=== PATIENT | female | born 1960 | race Caucasian/White ===

== ENCOUNTER 2016-09-09 06:18 | Emergency (ER) | payer OTHER ==
[~2016-09-09] VITALS: Ht 162.6 cm; Wt 99.5 kg
[~2016-09-09 06:18] MED LIST: ALPR0.5T PO; AMLO-218 PO; BENZ1TAB7 PO; CYCL5TAB PO; GEMF600T PO; GLYB5TAB3 PO; HALO10TA PO; IBUP-1542 PO; METF500T4 PO; OXYC-284 PO; PARO20TA58 PO
[2016-09-09 06:39] VITALS: Ht 162.6 cm; Wt 99.5 kg
[2016-09-09] MEDS ORDERED: FAMOTIDINE 20 MG TAB PO ONE (07:00)
[2016-09-09] MEDS ORDERED: LIDOCAINE/MYLANTA 4 ML (PO SYG) PO ONE (07:00)
[2016-09-09] MEDS ORDERED: LIDOCAINE/MYLANTA 40 ML BTL PO STA (07:08)
[2016-09-09 07:10] LABS: ADD SCAN DIFF NO
--- NOTE | 2016-09-09 07:11 | ERD ---
ER Documentation Chief Complaint Date/Time DATE: 09/09/16 TIME: 07:06 Chief Complaint BROUGHT IN VIA EMS DUE TO ABDOMINAL PAIN HPI 56-year-old female with a history of diabetes and hypertension brought in by ambulance for epigastric abdominal pain that woke her up from sleep. She states it was a sharp, stabbing pain. Nonradiating, no associated dizziness, shortness of breath, diaphoresis, nausea, or vomiting. She did have one loose bowel movement which made her feel a lot better. Her pain lasted only a few minutes. Currently she denies any pain. She has no chest pain or shortness of breath at this time. No fevers or chills. She is taking an "antibiotic" for recently diagnosed fungal infection in her mouth. No recent travel or other antibiotics. Of note, the patient admits to using methamphetamines yesterday ROS All systems reviewed and are negative except as per history of present illness. Medications Home Meds Active Scripts Cyclobenzaprine Hcl* (Cyclobenzaprine Hcl*) 5 Mg Tablet, 5 MG PO Q8H Y for MUSCLE SPASMS, #15 TAB Prov:SHANI JACKMAN NP 07/26/15 Ibuprofen* (Motrin*) 600 Mg Tab, 600 MG PO Q6H Y for PAIN AND OR ELEVATED TEMP, #30 TAB Prov:SHANI JACKMAN NP 07/26/15 Oxycodone Hcl-Acetaminophen* (Percocet*) 10-325 Mg Tablet, 1 TAB PO Q4H Y for SEVERE PAIN LEVEL 7-10, #10 TAB Prov:SHANI JACKMAN NP 07/26/15 Ibuprofen* (Motrin*) 600 Mg Tab, 600 MG PO Q6H Y for PAIN AND OR ELEVATED TEMP, #30 Prov:KINGSLEY SANTIZO MD 11/29/14 Reported Medications Glyburide* (Glyburide*) 5 Mg Tablet, 5 MG PO BID, TAB 11/29/14 Paroxetine Hcl* (Paxil*) 20 Mg Tablet, 20 MG PO DAILY, TAB 11/29/14 Benztropine Mesylate* (Cogentin*) 1 Mg Tab, 1 MG PO BID, TAB 11/29/14 Alprazolam* (Xanax*) 0.5 Mg Tab, 0.5-1 MG PO DAILY Y for ANXIETY, TAB 11/29/14 Metformin* (Glucophage*) 500 Mg Tab, 500 MG PO BID, TAB 11/29/14 Haloperidol* (Haloperidol*) 10 Mg Tablet, 10 MG PO DAILY, TAB 11/29/14 Gemfibrozil* (Lopid*) 600 Mg Tablet, 600 MG PO BID, TAB 11/29/14 Amlodipine Besylate* (Norvasc*) 10 Mg Tablet, 10 MG PO DAILY, TAB 11/29/14 Allergies Allergies: Coded Allergies: hydrocodone (Verified Allergy, Unknown, PT DOES NOT LIKE VICODIN, BUT NO ALLERGY TO IT, 11/29/14) PMhx/Soc History of Surgery: Yes (left ankle surgery) Anesthesia Reaction: No Hx Respiratory Disorders: Yes (COPD) Hx Cardiac Disorders: Yes (Hypertension) Hx Psychiatric Problems: Yes (Schizoprenia(stable)) Hx Miscellaneous Medical Probl: Yes (chronic back pain, diabetes type 2, 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 Oropharynx normal Neck: Full range of motion. No JVD. No meningismus. Resp: Clear to auscultation bilaterally Cardio: Regular rate and rhythm, no murmurs. 2+ distal pulses in all 4 extremities Abd: Soft, minimal epigastric tenderness to palpation without rebound or guarding, non distended. Normal bowel sounds Skin: No petechiae or rashes Rectal: Normal tone, No mass, Positive control Stool: Brown Guaiac: Sent to lab Back: No midline or flank tenderness Ext: No cyanosis, or edema Neur: Awake and alert and oriented 3, no facial asymmetry, strength and sensations intact in all 4 extremities Psych: Normal Mood and Affect Result Diagram: 09/09/1650 09/09/1650 Results 24 hrs Laboratory Tests Test 09/09/16 06:50 White Blood Count 9.310^3/ul Red Blood Count 4.2610^6/ul Hemoglobin 12.3g/dl Hematocrit 36.8% Mean Corpuscular Volume 86.4fl Mean Corpuscular Hemoglobin 28.9pg Mean Corpuscular Hemoglobin Concent 33.4g/dl Red Cell Distribution Width 14.2% Platelet Count 63757^3/UL Mean Platelet Volume 10.2fl Neutrophils % 50.5% Lymphocytes % 32.8% Monocytes % 12.4% Eosinophils % 3.2% Basophils % 0.8% Nucleated Red Blood Cells % 0.0/100WBC Neutrophils # 4.710^3/ul Lymphocytes # 3.110^3/ul Monocytes # 1.210^3/ul Eosinophils # 0.310^3/ul Basophils # 0.110^3/ul Nucleated Red Blood Cells # 0.010^3/ul Prothrombin Time 12.3Sec Prothrombin Time Ratio 1.0 INR International Normalized Ratio 0.91 Activated Partial Thromboplast Time 30.2Sec Stool Occult Blood NEGATIVE Sodium Level 137mmol/L Potassium Level 3.9mmol/L Chloride Level 104mmol/L Carbon Dioxide Level 27mmol/L Anion Gap 10 Blood Urea Nitrogen 15mg/dl Creatinine 0.57mg/dl Glucose Level 104mg/dl Calcium Level 9.5mg/dl Total Bilirubin 0.1mg/dl Direct Bilirubin 0.00mg/dl Indirect Bilirubin 0.1mg/dl Aspartate Amino Transf (AST/SGOT) 29IU/L Alanine Aminotransferase (ALT/SGPT) 42IU/L Alkaline Phosphatase 101IU/L Troponin I < 0.012ng/ml Total Protein 7.2g/dl Albumin 4.4g/dl Globulin 2.80g/dl Albumin/Globulin Ratio 1.57 Lipase 93U/L Current Medications Medications (Trade) Dose Ordered Sig/Anthony Route PRN Reason Start Time Stop Time Status Last Admin Dose Admin Famotidine (Pepcid) 20 mg ONCE ONCE PO 09/09/16 07:00 09/09/16 07:01 DC 09/09/16 07:16 Miscellaneous Medication (Gi Cocktail (2) (Ped)) 40 ml ONCE ONCE PO 09/09/16 07:00 09/09/16 07:09 DC Miscellaneous Medication (Gi Cocktail (2)) 40 ml ONCE STAT PO 09/09/16 07:08 09/09/16 07:10 DC 09/09/16 07:16 Procedures/MDM EKG: Rate/Rhythm: Normal Sinus Rhythm QRS, ST, T-waves: No changes consistent w/ acute ischemia Impression: No evidence of ischemia or arrhythmia Labs CBC: no anemia or evidence of infection CMP: No evidence of electrolyte abnormality, renal failure, hypoglycemia, liver failure, or biliary obstruction Lipase: no evidence of pancreatitis Troponin within normal limits Chest x-ray: No acute abnormalities MDM Patient is presenting with sudden onset epigastric pain that now resolved. She is hemodynamically stable. Differential includes but is not limited to biliary colic, biliary obstruction, acute cholecystitis, pancreatitis, hepatitis, lower lobe pneumonia, gastritis, colitis, cardiac pathology, aortic dissection, ureterolithiasis, pyelonephritis. I have a low suspicion for acute infectious process or for cardiac or aortic etiology. Labs were ordered to evaluate for above and were normal. Chest Xray ordered to evaluate for pneumonia and was read as normal by radiology. I do not think imaging of the abdomen is warranted at this time. Patient's pain is resolved. Pepcid and GI cocktail were given. Fecal occult blood was negative. Patient requesting discharge upon reevaluation. She states she feels much better. She was counseled on the dangers of using drugs, especially at her age. She was encouraged to return for any worsening symptoms. Follow-up with primary care doctor was recommended in 1-2 days. Smoking Cessation Therapy: Pt. was lectured for greater than 3 minutes on the health risks of continued smoking and the benefits of cessation. Departure Diagnosis: Primary Impression: Abdominal pain Abdominal location: epigastric Qualified Code: R10.13 - Epigastric pain Additional Impressions: Tobacco abuse counseling Tobacco dependence Condition: Stable HERVE BRIONES MD Sep 09, 2016 07:11
[2016-09-09 07:29] LABS: BASOPHIL # 0.1 10^3/ul (0.0-0.1); BASOPHILS % 0.8 % (0.0-2.0); EOSINOPHILS # 0.3 10^3/ul (0.0-0.5); EOSINOPHILS % 3.2 % (0.0-7.0); HEMATOCRIT 36.8 % (37.0-47.0); HEMOGLOBIN 12.3 g/dl (12.0-16.0); LYMPHOCYTES # 3.1 10^3/ul (0.8-2.9); LYMPHOCYTES % 32.8 % (15.0-51.0); MEAN CORPUSCULAR HEMOGLOBIN 28.9 pg (29.0-33.0); MEAN CORPUSCULAR HGB CONC 33.4 g/dl (32.0-37.0); MEAN CORPUSCULAR VOLUME 86.4 fl (82.0-101.0); MEAN PLATELET VOLUME 10.2 fl (7.4-10.4); MONOCYTE # 1.2 10^3/ul (0.3-0.9); MONOCYTES % 12.4 % (0.0-11.0); NEUTROPHIL # 4.7 10^3/ul (1.6-7.5); NEUTROPHILS % 50.5 % (39.0-77.0); PLATELET COUNT 368 10^3/UL (140-415); RED BLOOD COUNT 4.26 10^6/ul (4.20-5.40); RED CELL DISTRIBUTION WIDTH 14.2 % (11.5-14.5); WHITE BLOOD COUNT 9.3 10^3/ul (4.8-10.8)
[2016-09-09 07:31] LABS: INR 0.91; PROTIME 12.3 Sec (12.2-14.2)
[2016-09-09 07:32] LABS: PARTIAL THROMBOPLASTIN TIME 30.2 Sec (25.0-35.0)
[2016-09-09 07:35] LABS: ALANINE AMINOTRANSFERASE 42 IU/L (13-69); ALBUMIN 4.4 g/dl (3.3-4.9); ALBUMIN/GLOBULIN RATIO 1.57; ALKALINE PHOSPHATASE 101 IU/L (42-121); ANION GAP 10 (8-16); ASPARTATE AMINO TRANSFERASE 29 IU/L (15-46); BILIRUBIN,INDIRECT 0.1 mg/dl (0-1.1); BILIRUBIN,TOTAL 0.1 mg/dl (0.2-1.3); BLOOD UREA NITROGEN 15 mg/dl (7-20); CALCIUM 9.5 mg/dl (8.4-10.2); CARBON DIOXIDE 27 mmol/L (21-31); CHLORIDE 104 mmol/L (97-110); CREATININE 0.57 mg/dl (0.44-1.00); GLUCOSE 104 mg/dl (70-220); POTASSIUM 3.9 mmol/L (3.5-5.1); SODIUM 137 mmol/L (135-144); TOTAL PROTEIN 7.2 g/dl (6.1-8.1)
[2016-09-09 07:48] LABS: TROPONIN-I < 0.012 ng/ml (0.00-0.12)
--- NOTE | 2016-09-09 07:56 | RADRPT ---
PROCEDURE: XR Chest. CLINICAL INDICATION: Shortness of breath TECHNIQUE: An AP view of the chest was obtained. COMPARISON: No prior exam is available for comparison. FINDINGS: There is prominence of the interstitial markings. No pleural effusion or pneumothorax is seen. Th e cardiomediastinal silhouette is mildly enlarged . Calcifications are seen within the aortic arch. The osseous structures demonstrate senescent changes. IMPRESSION: 1. Mild prominence of the interstitial markings, may reflect mild underlying interstitial edema or chronic lung changes. 2. Mild cardiomegaly and aortic atherosclerosis. RPTAT: HH .Lisandra Mccloud MD, MD Date Time Electronically viewed and signed by .Lisandra Mccloud MD, MD on 09/09/2016 07:56 .G/
== END 2016-09-09 08:30 | disposition home or self-care (01) ==
LOC: E/R 06:18
DX: R10.13 Epigastric pain (principal); F17.210 Nicotine dependence, cigarettes, uncomplicated; E11.9 Type 2 diabetes mellitus without complications; I10 Essential (primary) hypertension; J44.9 Chronic obstructive pulmonary disease, unspecified; Z71.6 Tobacco abuse counseling; Z79.84 Long term (current) use of oral hypoglycemic drugs
CPT/HCPCS: 36415; 71010; 80053; 82270; 83690; 84484; 85025; 85610; 85730; 93005

== ENCOUNTER 2016-11-10 16:12 | Emergency (ER) | payer OTHER ==
[~2016-11-10] VITALS: Ht 162.6 cm; Wt 100.0 kg
[2016-11-10 16:26] VITALS: Ht 162.6 cm; Wt 100.0 kg
[2016-11-10] MEDS ORDERED: ASPIRIN 81 MG TAB PO STA (16:27)
[2016-11-10 16:43] LABS: BASOPHILS % 0.4 % (0.0-2.0); EOSINOPHILS # 0.4 10^3/ul (0.0-0.5); EOSINOPHILS % 3.4 % (0.0-7.0); HEMATOCRIT 37.8 % (37.0-47.0); HEMOGLOBIN 12.7 g/dl (12.0-16.0); LYMPHOCYTES # 2.4 10^3/ul (0.8-2.9); LYMPHOCYTES % 22.4 % (15.0-51.0); MEAN CORPUSCULAR HEMOGLOBIN 28.9 pg (29.0-33.0); MEAN CORPUSCULAR HGB CONC 33.6 g/dl (32.0-37.0); MEAN CORPUSCULAR VOLUME 86.1 fl (82.0-101.0); MEAN PLATELET VOLUME 9.4 fl (7.4-10.4); MONOCYTE # 0.9 10^3/ul (0.3-0.9); NEUTROPHILS % 65.4 % (39.0-77.0); PLATELET COUNT 372 10^3/UL (140-415); RED BLOOD COUNT 4.39 10^6/ul (4.20-5.40); RED CELL DISTRIBUTION WIDTH 13.4 % (11.5-14.5); WHITE BLOOD COUNT 10.8 10^3/ul (4.8-10.8)
--- NOTE | 2016-11-10 16:57 | RADRPT ---
PROCEDURE: XR Chest. CLINICAL INDICATION: Chest pain. TECHNIQUE: Anterior chest x-ray. COMPARISON: 09/09/2016 FINDINGS: The lungs are clear. No pleural effusion identified. There is no evidence of pneumothorax. The cardiomediastinal silhouette is unremarkable. The soft tissues are normal. Osseous structures are unremarkable. IMPRESSION: 1. No acute disease is seen in the chest. RPTAT: QQ .Jason Torres MD, MD Date Time Electronically viewed and signed by .Jason Torres MD, on 11/10/2016 16:56 .M/
[2016-11-10 17:02] LABS: ANION GAP 10 (8-16); BLOOD UREA NITROGEN 12 mg/dl (7-20); CALCIUM 8.9 mg/dl (8.4-10.2); CARBON DIOXIDE 28 mmol/L (21-31); CHLORIDE 107 mmol/L (97-110); CREATININE 0.56 mg/dl (0.44-1.00); GLUCOSE 125 mg/dl (70-220); POTASSIUM 3.3 mmol/L (3.5-5.1); SODIUM 142 mmol/L (135-144)
--- NOTE | 2016-11-10 17:04 | ERD ---
ER Documentation Chief Complaint Date/Time DATE: 11/10/16 TIME: 17:01 Chief Complaint chest pain x 30 min ago resolved after asa 162mg, and nitro spray x 2 HPI This 56-year-old female presents with now 45 minutes of chest pain there was epigastric and substernal, nonradiating, sharp pain that was not associated with shortness of breath or nausea. She has had this pain on and off a couple of times. She came by ambulance and received 2 sublingual nitroglycerin as well as 160 mg aspirin. Her chest pain resolved with that. Currently she has no symptoms. ROS All systems reviewed and are negative except as per history of present illness. Medications Home Meds Active Scripts Ranitidine Hcl* (Zantac*) 150 Mg Tablet, 150 MG PO BID, #60 TAB Prov:RIDDHI RING DO 11/10/16 Cyclobenzaprine Hcl* (Cyclobenzaprine Hcl*) 5 Mg Tablet, 5 MG PO Q8H Y for MUSCLE SPASMS, #15 TAB Prov:SHANI JACKMAN NP 07/26/15 Ibuprofen* (Motrin*) 600 Mg Tab, 600 MG PO Q6H Y for PAIN AND OR ELEVATED TEMP, #30 TAB Prov:SHANI JACKMAN NP 07/26/15 Oxycodone Hcl-Acetaminophen* (Percocet*) 10-325 Mg Tablet, 1 TAB PO Q4H Y for SEVERE PAIN LEVEL 7-10, #10 TAB Prov:SHANI JACKMAN NP 07/26/15 Ibuprofen* (Motrin*) 600 Mg Tab, 600 MG PO Q6H Y for PAIN AND OR ELEVATED TEMP, #30 Prov:KINGSLEY SANTIZO MD 11/29/14 Reported Medications Glyburide* (Glyburide*) 5 Mg Tablet, 5 MG PO BID, TAB 11/29/14 Paroxetine Hcl* (Paxil*) 20 Mg Tablet, 20 MG PO DAILY, TAB 11/29/14 Benztropine Mesylate* (Cogentin*) 1 Mg Tab, 1 MG PO BID, TAB 11/29/14 Alprazolam* (Xanax*) 0.5 Mg Tab, 0.5-1 MG PO DAILY Y for ANXIETY, TAB 11/29/14 Metformin* (Glucophage*) 500 Mg Tab, 500 MG PO BID, TAB 11/29/14 Haloperidol* (Haloperidol*) 10 Mg Tablet, 10 MG PO DAILY, TAB 11/29/14 Gemfibrozil* (Lopid*) 600 Mg Tablet, 600 MG PO BID, TAB 11/29/14 Amlodipine Besylate* (Norvasc*) 10 Mg Tablet, 10 MG PO DAILY, TAB 11/29/14 Allergies Allergies: Coded Allergies: hydrocodone (Verified Allergy, Unknown, PT DOES NOT LIKE VICODIN, BUT NO ALLERGY TO IT, 11/29/14) PMhx/Soc History of Surgery: Yes (left ankle surgery) Anesthesia Reaction: No Hx Neurological Disorder: No Hx Respiratory Disorders: Yes (COPD) Hx Cardiac Disorders: Yes (Hypertension) Hx Psychiatric Problems: Yes (Schizoprenia(stable)) Hx Miscellaneous Medical Probl: Yes (chronic back pain, diabetes type 2, lumbar disc herniations 1-5) Hx Alcohol Use: Yes (Occasionally) Hx Substance Use: Yes (Methamphetamine ) Hx Tobacco Use: Yes (Daily) Smoking Status: Heavy tobacco smoker Physical Exam Vitals Vital Signs Date Time Temp Pulse Resp B/P Pulse Ox O2 Delivery O2 Flow Rate FiO2 11/10/16 16:35 Nasal Cannula 2 11/10/16 16:26 98.3 80 18 131/78 94 Physical Exam Const: [] No distress, smiling in bed Head: Atraumatic Eyes: Normal Conjunctiva ENT: Normal External Ears, Nose and Mouth. Neck: Full range of motion..~ No meningismus. Resp: Clear to auscultation bilaterally Cardio: Regular rate and rhythm, no murmurs Abd: Soft, non tender, non distended. Normal bowel sounds Skin: No petechiae or rashes Back: No midline or flank tenderness Ext: No cyanosis, or edema Neur: Awake and alertNo oriented 3, no focal deficits. Psych: Normal Mood and Affect Result Diagram: 11/10/16 1635 11/10/16 1635 Results 24 hrs Laboratory Tests Test 11/10/16 16:35 White Blood Count 10.810^3/ul Red Blood Count 4.3910^6/ul Hemoglobin 12.7g/dl Hematocrit 37.8% Mean Corpuscular Volume 86.1fl Mean Corpuscular Hemoglobin 28.9pg Mean Corpuscular Hemoglobin Concent 33.6g/dl Red Cell Distribution Width 13.4% Platelet Count 35319^3/UL Mean Platelet Volume 9.4fl Neutrophils % 65.4% Lymphocytes % 22.4% Monocytes % 8.0% Eosinophils % 3.4% Basophils % 0.4% Nucleated Red Blood Cells % 0.0/100WBC Neutrophils # (Manual) 7.110^3/ul Lymphocytes # 2.410^3/ul Monocytes # 0.910^3/ul Eosinophils # 0.410^3/ul Basophils # 0.010^3/ul Nucleated Red Blood Cells # 0.010^3/ul Sodium Level 142mmol/L Potassium Level 3.3mmol/L Chloride Level 107mmol/L Carbon Dioxide Level 28mmol/L Anion Gap 10 Blood Urea Nitrogen 12mg/dl Creatinine 0.56mg/dl Glucose Level 125mg/dl Calcium Level 8.9mg/dl Troponin I < 0.012ng/ml B-Type Natriuretic Peptide 16PG/ML Current Medications Medications (Trade) Dose Ordered Sig/Anthony Route PRN Reason Start Time Stop Time Status Last Admin Dose Admin Aspirin (Aspirin) 162 mg ONCE STAT PO 11/10/16 16:27 11/10/16 16:29 DC 11/10/16 16:44 Procedures/MDM 56-year-old female with atypical chest pain. Completely normal EKG and negative troponin. She was given 162 mg of aspirin. She remained asymptomatic throughout her ER stay. I spoke to her about a repeat troponin measurement as her chest pain had only been present for an hour and a half before troponin was drawn. Told her that it would not be expected to rise yet. She declined this and stated that she really wanted to go home because she felt fine. Told her she should definitely follow-up with her primary care doctor next day or 2 and have a echocardiogram done. Pending her EKG and laboratories to take home with her. Given her strict return precautions to the ER. EKG interpretation: Normal sinus rhythm rate of 74, normal axis, normal intervals, no ST or T-wave changes concerning for acute ischemia. Normal EKG quality assurance monitor interpretation: Normal sinus without arrhythmia Chest x-ray interpretation: I see no acute process, I see no pulmonary edema, no infiltrate, no widened mediastinum, pneumothorax, no fractures. Departure Diagnosis: Primary Impression: Chest pain Condition: Stable SHANNEN RINGGRICELDA COLLINS Nov 10, 2016 17:04
[2016-11-10 17:13] LABS: B-TYPE NATRIURETIC PEPTIDE 16 PG/ML (0-125)
[2016-11-10 17:14] LABS: TROPONIN-I < 0.012 ng/ml (0.00-0.12)
[2016-11-10] MEDS ORDERED: RANI150T9 PO (18:25)
[2016-11-10 18:30] VITALS: BP 164/78; RESP 18
== END 2016-11-10 18:41 | disposition left against medical advice (07) ==
LOC: E/R 16:12
DX: R07.2 Precordial pain (principal); J44.9 Chronic obstructive pulmonary disease, unspecified; I10 Essential (primary) hypertension; E11.9 Type 2 diabetes mellitus without complications; F17.210 Nicotine dependence, cigarettes, uncomplicated; Z79.84 Long term (current) use of oral hypoglycemic drugs
CPT/HCPCS: 71010; 80048; 83880; 84484; 85025; 93005